=== PATIENT | female | born 1935 | race Asian ===

== ENCOUNTER 2017-08-30 10:52 | Day surgery (SDC) | payer MEDICARE, OTHER ==
[~2017-08-30 10:52] MED LIST: CHONDR SU A NA/HYALUR INTRAOC KIT (SURGICARE) ONE; KETOROLAC TROMETHAMINE 0.45% 4 DROP/0.4 ML DROPERETTE OS PRN; LIDOCAINE 1% INJ-PF (10 MG/ML) 30 ML SDV ONE; PHENYLEPHRINE/KETOROLAC 1%-0.3% 4 ML VIAL ONE; TRYPAN BLUE 0.06 % OPH SOLN 0.5 ML DISP.SYRIN ONE
[2017-08-30] MEDS: TETRACAINE HCL 0.5% OPH SOLN 2 ML OS PRN ×4 (11:15→11:41)
[2017-08-30] MEDS: CYCLOPENTOLATE 0.2%/PHENYLEPHRINE 1% OPH SOLN 2 ML OS PRN ×3 (11:16→11:37)
[2017-08-30] MEDS: TROPICAMIDE 1% OPH SOLN 3 ML OS PRN ×3 (11:16→11:37)
[2017-08-30] MEDS: BESIFLOXACIN HCL 0.6% OPH SUSP 5 ML BOTTLE OS PRN ×4 (11:17→12:18)
[2017-08-30] MEDS ORDERED: MIDAZOLAM 2 MG/2 ML INJ ONE (11:27)
[2017-08-30] MEDS ORDERED: FENTANYL CITRATE INJ/PF 100 MCG/2 ML AMPUL ONE (11:28)
[2017-08-30] MEDS ORDERED: CHONDR SU A NA/HYALUR SOD 0.5 ML DISP.SYRIN ONE (15:01)
--- NOTE | 2017-08-30 19:23 | [facility] OPERATIVE REPORT E ---
[facility] Operative Report NAME: JESSICA HAAS AGE: 82Y DATE OF SURGERY: 08/30/2017 ROOM: PREOPERATIVE DIAGNOSIS: CATARACT, LEFT EYE. POSTOPERATIVE DIAGNOSIS: CATARACT, LEFT EYE. OPERATION: Cataract extraction with Toric intraocular lens implant of the left eye. SURGEON: GINO DUNHAM M.D. ANESTHESIA: Topical. PROCEDURE: After obtaining appropriate consent, the patient's @ eye was prepped and draped in sterile fashion as well as the surgeon in a sterile manner and cataract surgery was started. First a paracentesis blade was used to make a small side-port incision. Viscoelastic was used to inflate the anterior chamber. Next a 2.4 mm incision was made with the paracentesis blade. A continuous capsulorrhexis incision was made using a cystotome and Utrata forceps. Following this hydrodissection was carried out to make the lens fully loose and mobile and it was rotated 90 degrees. Following this, a akcjoc-pst-nsbygug technique was used to phacoemulsify the lens with a CDE of 16.01. The remaining cortex was removed with irrigation/aspiration. Provisc was instilled into the capsular bag to inflate the bag. A SN6AT4, 22.5 lens rotated to 4 degrees. The remaining viscoelastic material was removed with irrigation/aspiration. Following this, a 10-0 nylon suture was used to close the incision and it was found to be watertight. Vigamox was instilled in the eye and a protective shield was placed over the eye. The patient returned to the postoperative recovery in stable condition. DICTATING PHYSICIAN: GINO DUNHAM M.D. [id number] [id number] PHY#: [id number] ID: [id number] JOB#: [id number] ACCT: [id number] cc:GINO DUNHAM M.D. >
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
== END 2017-08-30 13:04 | disposition home or self-care (01) ==
LOC: SC 10:52
PROVIDERS: ATTEND Internal Medicine
DX: H25.89 Other age-related cataract (principal); H04.123 Dry eye syndrome of bilateral lacrimal glands; E78.00 Pure hypercholesterolemia, unspecified; F17.210 Nicotine dependence, cigarettes, uncomplicated; Z79.899 Other long term (current) drug therapy; Z85.038 Personal history of other malignant neoplasm of large intestine
CPT/HCPCS: 66984; V2787; J2250; J3490 ×4; A9270; J3010; C9447; 142

== ENCOUNTER 2017-09-20 09:50 | Day surgery (SDC) | payer MEDICARE, OTHER ==
[~2017-09-20 09:50] MED LIST changes: -CHONDR SU A NA/HYALUR INTRAOC KIT (SURGICARE) ONE; +KETOROLAC TROMETHAMINE 0.45% 4 DROP/0.4 ML DROPERETTE OD PRN; -KETOROLAC TROMETHAMINE 0.45% 4 DROP/0.4 ML DROPERETTE OS PRN; -LIDOCAINE 1% INJ-PF (10 MG/ML) 30 ML SDV ONE; -PHENYLEPHRINE/KETOROLAC 1%-0.3% 4 ML VIAL ONE; -TRYPAN BLUE 0.06 % OPH SOLN 0.5 ML DISP.SYRIN ONE
[2017-09-20] MEDS ORDERED: EPINEPHRINE INJ/PF 1 MG/1 ML AMPULE ONE (10:08)
[2017-09-20] MEDS ORDERED: CHONDR SU A NA/HYALUR INTRAOC KIT (SURGICARE) ONE (10:08)
[2017-09-20] MEDS ORDERED: LIDOCAINE 1% INJ-PF (10 MG/ML) 30 ML SDV ONE (10:08)
[2017-09-20] MEDS: TETRACAINE HCL 0.5% OPH SOLN 2 ML OD PRN ×3 (10:25→11:00)
[2017-09-20] MEDS: CYCLOPENTOLATE 0.2%/PHENYLEPHRINE 1% OPH SOLN 2 ML OD PRN ×3 (10:25→10:45)
[2017-09-20] MEDS: TROPICAMIDE 1% OPH SOLN 3 ML OD PRN ×3 (10:26→10:45)
[2017-09-20] MEDS: BESIFLOXACIN HCL 0.6% OPH SUSP 5 ML BOTTLE OD PRN ×3 (10:27→11:30)
[2017-09-20] MEDS ORDERED: MIDAZOLAM 2 MG/2 ML INJ ONE (10:34)
--- NOTE | 2017-09-20 19:23 | [facility] OPERATIVE REPORT E ---
[facility] Operative Report NAME: JESSICA HAAS AGE: 82Y DATE OF SURGERY: 09/20/2017 ROOM: PREOPERATIVE DIAGNOSIS: CATARACT, RIGHT EYE. POSTOPERATIVE DIAGNOSIS: CATARACT, RIGHT EYE. OPERATION: Cataract extraction with toric IOL. SURGEON: GINO DUNHAM M.D. ANESTHESIA: Topical. PROCEDURE: After obtaining appropriate consent, the patient's right eye was prepped and draped in sterile fashion as well as the surgeon in a sterile manner and cataract surgery was started. First a paracentesis blade was used to make a small side-port incision. Viscoelastic was used to inflate the anterior chamber. Next a 2.4 mm incision was made with the paracentesis blade. A continuous capsulorrhexis incision was made using a cystotome and Utrata forceps. Following this hydrodissection was carried out to make the lens fully loose and mobile and it was rotated 90 degrees. Following this, a bfiykf-mcx-hnvbndd technique was used to phacoemulsify the lens with a CDE of 13.02. The remaining cortex was removed with irrigation/aspiration. Provisc was instilled into the capsular bag to inflate the bag. A [id number], 22.5 toric lens was placed. The remaining viscoelastic material was removed with irrigation/aspiration. Following this, a 10-0 nylon suture was used to close the incision and it was found to be watertight. Vigamox was instilled in the eye and a protective shield was placed over the eye. The patient returned to the postoperative recovery in stable condition. The lens was rotated to 173 degrees. DICTATING PHYSICIAN: GINO DUNHAM M.D. [id number] [id number] PHY#: [id number] ID: [id number] JOB#: [id number] ACCT: [id number] cc:GINO DUNHAM M.D. >
--- NOTE | 2017-09-20 19:24 | [facility] DISCHARGE SUMMARY E ---
[facility] Discharge Summary NAME: JESSICA HAAS AGE: 82Y ADMITTED: 09/20/2017 DISCHARGED: 09/20/2017 HOSPITAL COURSE: This is an 82-year-old female who underwent cataract extraction of the right eye. DIAGNOSIS: CATARACT, RIGHT EYE WITH TORIC IOL. The patient underwent surgery because she was having difficulty with increase driving at nighttime. DISCHARGE INSTRUCTIONS: She is to be on a regular diet. No bending at her waist, no heavy lifting. She should use Besivance, Ilevro, and Durezol at 3 p.m. and 8 p.m. and sleep with a rigid shield. I will see her for her 1 day postoperative tomorrow. DICTATING PHYSICIAN: GINO DUNHAM M.D. [id number] [id number] PHY#: [id number] ID: [id number] JOB#: [id number] ACCT: [id number] cc:GINO DUNHAM M.D. >
== END 2017-09-20 12:12 | disposition home or self-care (01) ==
LOC: SC 09:50
PROVIDERS: ATTEND Internal Medicine
PROC: 08RJ3JZ Replacement of Right Lens with Synthetic Substitute, Percutaneous Approach (ICD-10-PCS; principal; 2017-09-20 11:30)
DX: H25.89 Other age-related cataract (principal); Z96.1 Presence of intraocular lens; F17.210 Nicotine dependence, cigarettes, uncomplicated
CPT/HCPCS: 66984; V2787; J2250; J3490 ×2; A9270; J0171; 142